=== PATIENT | male | born 1935 | race Caucasian/White ===

== ENCOUNTER → 2016-08-05 | Outpatient (CLI) | payer MEDICARE, OTHER | LOC: GMAB 14:45 | PROVIDERS: ATTEND Family Medicine | DX: I10 Essential (primary) hypertension (principal); Z12.5 Encounter for screening for malignant neoplasm of prostate ==

== ENCOUNTER → 2016-09-29 | Outpatient (CLI) | payer MEDICARE, OTHER | END | disposition home or self-care (01) | LOC: GMAB 16:46 | PROVIDERS: ATTEND Family Medicine | DX: R41.9 Unspecified symptoms and signs involving cognitive functions and awareness (principal); R41.82 Altered mental status, unspecified ==

== ENCOUNTER → 2016-10-28 | Outpatient (CLI) | payer MEDICARE, OTHER ==
--- NOTE | 2016-10-28 12:37 | CT ---
Study: CT of the Head. Indication: DEMENTIA Technique: Axial CT images of the head were acquired without intravenous contrast. Comparison: None. Findings: No CT evidence of acute ischemia, acute hemorrhage, mass, mass effect, midline shift, or extra-axial fluid collection. Ventricles are normal in configuration without hydrocephalus. Patchy hypoattenuation of the periventricular and subcortical white matter noted. This is nonspecific but most consistent with chronic microvascular ischemic change. Global parenchymal volume loss and intracranial atherosclerosis noted as well. Complete opacification right sphenoid sinus with osseous wall thickening indicating chronic sinusitis. Mastoid air cells are adequately aerated. Osseous structures and soft tissues are unremarkable. Impression: 1. No CT evidence of acute intracranial abnormality. 2. Senescent changes. 3. Chronic right sphenoid sinusitis. Electronically signed by: Humza Walters MD 10/28/2016 12:35 PM CDT
== END | disposition home or self-care (01) ==
LOC: CT 11:19
PROVIDERS: ATTEND Family Medicine
DX: F03.90 Unspecified dementia, unspecified severity, without behavioral disturbance, psychotic disturbance, mood disturbance, and anxiety (principal)

== ENCOUNTER → 2017-04-26 | Outpatient (CLI) | payer MEDICARE, OTHER | END | disposition home or self-care (01) | LOC: GMAB 16:57 | PROVIDERS: ATTEND Family Medicine | DX: R63.4 Abnormal weight loss (principal) ==